=== PATIENT | female | born 1970 | race Caucasian/White ===

== ENCOUNTER 2016-12-21 22:37 | Emergency (ER) | payer OTHER ==
[~2016-12-21] VITALS: Ht 165.1 cm; Wt 60.0 kg
[2016-12-21 23:12] VITALS: Ht 165.1 cm; Wt 60.0 kg
[2016-12-21] MEDS ORDERED: NPH10OT BOTH EARS (23:47)
[2016-12-21] MEDS ORDERED: IBUP-1542 PO (23:47)
--- NOTE | 2016-12-21 23:49 | ERD ---
ER Documentation Chief Complaint Date/Time DATE: 12/21/16 TIME: 23:47 Chief Complaint l ear pain for past 3-4 months HPI Patient is a 45-year-old female who presents with left ear pain that she has had for 3-4 months but got worse today. She denies any fever. Denies any bleeding or drainage. She states she feels like her ear is full and like it is blocked. She has had decreased hearing in the ear. She has not had any recent illness. She has not seen her primary care doctor for this and she has not taken any medications for this. ROS All systems reviewed and are negative except as per history of present illness. Medications Home Meds Active Scripts Ibuprofen* (Motrin*) 600 Mg Tab, 600 MG PO Q6, #30 TAB Prov:JODI PRIETO PA-C 12/21/16 Neomycin/Polymyxin/Hydrocort* (Cortisporin* Otic) 10 Ml Susp, 4 DROP BOTH EARS QID for 7 Days, EA Prov:JODI PRIETO PA-C 12/21/16 Allergies Allergies: Coded Allergies: cephalexin (Verified Allergy, Unknown, 12/21/16) Uncoded Allergies: pcn (Adverse Reaction, Unknown, 12/21/16) PMhx/Soc Hx Alcohol Use: No Hx Substance Use: No Hx Tobacco Use: No FmHx Family History: No diabetes Physical Exam Vitals Vital Signs Date Time Temp Pulse Resp B/P Pulse Ox O2 Delivery O2 Flow Rate FiO2 12/21/16 23:12 97.8 100 18 114/60 100 Physical Exam General: well developed, well nourished, alert, nontoxic, no distress Head: normocephalic, atraumatic Eyes: PERRL, normal conjunctiva Neck: Supple, nontender, no lymphadenopathy, no midline tenderness Ears: no tenderness over mastoids bilaterally, TMs nonerythematous, no exudates in canal Oropharynx: no tonsilar erythema or edema, uvula midline, no exudates, no kissing tonsils, no drooling Respiratory: Clear to auscaultation bilaterally, speaks in full sentences, no use of accesory muscles or labored breathing, no rales, ronchi, or wheezing Cardiovascular: RRR, No murmurs Procedures/MDM Patient has ear pain for 3-4 months. Vital signs are normal. She is well- appearing in no distress. She has no tenderness over the mastoids bilaterally. No evidence of infection. She was given prescription for ibuprofen and cortisporin. Recommended this patient follow up with her primary care doctor within 48 hours or return to the emergency room for any worsening of symptoms. However this time I do believe there is suitable for outpatient management. I answered all their questions and they agreed with the plan and were discharged home. Departure Diagnosis: Primary Impression: Otalgia Condition: Stable Patient Instructions: Earache W/O Infection (Adult) Additional Instructions: Call your primary care doctor TOMORROW for an appointment during the next 1-2 days.See the doctor sooner or return here if your condition worsens before your appointment time. JODI PRIETO PA-C Dec 21, 2016 23:49
== END 2016-12-21 23:54 | disposition home or self-care (01) ==
LOC: FTE 22:37
DX: H92.02 Otalgia, left ear (principal)
CPT/HCPCS: 99283